=== PATIENT | female | born 1945 | race Caucasian/White ===

== ENCOUNTER 2020-12-08 16:12 | Inpatient (IN) ==
[2020-12-08] MEDS: Budesonide/Formoterol 160/4.5 1 PUFF INH IH SCH (22:15)
[2020-12-08] MEDS: Topiramate 25 MG TABLET PO SCH (22:37)
[2020-12-08] MEDS: Apixaban 5 MG TABLET PO SCH (22:37)
[2020-12-08] MEDS: Nystatin POWDER 30 GM BOTTLE TP SCH (22:38)
[2020-12-09 04:44] LABS: Basophils % 0.4 %; Eosinophils # 0.1 K/mcL (0.0-0.6); Eosinophils % 2.3 %; Hematocrit 38.7 % (35.3-44.9); Hemoglobin 10.9 g/dL (11.5-15.4); Immature Granulocytes % 0.5 % (0-4); Lymphocytes # 0.9 K/mcL (0.6-4.6); Lymphocytes % 16.4 %; Mean Corpuscular HGB Conc 28.2 g/dL (31.6-35.5); Mean Corpuscular Hemoglobin 26.1 pg (28.0-33.3); Mean Corpuscular Volume 92.6 fL (83.0-100.0); Mean Platelet Volume 11.5 fL (9.4-12.4); Monocytes # 0.3 K/mcL (0.0-1.3); Neutrophils # 4.2 K/mcL (1.6-8.9); Platelet Count 205 K/mcL (140-400); Red Blood Count 4.18 M/mcL (3.82-4.97); Red Cell Distribution Width 19.5 % (11.5-14.5); Segmented Neutrophils % 74.4 %; White Blood Count 5.6 K/mcL (4.3-11.1)
[2020-12-09] MEDS: Acetaminophen 325 MG TABLET PO PRN ×2 (04:49→17:27)
[2020-12-09 04:58] LABS: BUN/Creatinine Ratio 24 (6-26); Blood Urea Nitrogen 20 mg/dL (8-23); Carbon Dioxide 30 mEq/L (23-29); Chloride 108 mEq/L (98-107); Glucose 168 mg/dL (70-105); Magnesium 1.9 mg/dL (1.6-2.6); Osmolality,Calculated 302 (280-300); Potassium 4.5 mEq/L (3.5-5.1); Sodium 143 mEq/L (136-145); eGFR For African Americans > 60 (> 60); eGFR For Non-African Americans > 60 (> 60)
[2020-12-09] MEDS: Metoprolol XL (24 HR) Succ 50 MG TAB.ER.24H PO SCH (08:17)
[2020-12-09] MEDS: *HR* Amiodarone 200 MG TABLET PO SCH (08:17)
[2020-12-09] MEDS: *HR* Metformin 500 MG TABLET PO SCH (08:17)
[2020-12-09] MEDS: Nystatin POWDER 30 GM BOTTLE TP SCH ×3 (08:20→21:56)
[2020-12-09] MEDS: Tiotropium 10 INH DOSE IH SCH (10:14)
[2020-12-09] MEDS: Budesonide/Formoterol 160/4.5 1 PUFF INH IH SCH ×2 (10:17→19:13)
[2020-12-09] MEDS: Apixaban 5 MG TABLET PO SCH ×2 (10:25→20:51)
[2020-12-09] MEDS ORDERED: *HR* Dextrose 50 % in Water (Vial) 50 ML VIAL IVP PRN (11:40)
[2020-12-09] MEDS ORDERED: Dextrose Gel 15 GM/37.5 ML TUBE PO PRN ×2 (11:40)
[2020-12-09] MEDS ORDERED: D5% in Water 1,000 ML IVC PRN (11:40)
[2020-12-09] MEDS: Insulin LISPRO 300 UNITS/3 ML VIAL SUBQ SCH ×2 (16:05→20:51)
[2020-12-09] MEDS: Topiramate 25 MG TABLET PO SCH (20:51)
[2020-12-09] MEDS ORDERED: QUEtiapine Fumarate 25 MG TABLET PO SCH (21:00)
[2020-12-10 06:15] LABS: Hematocrit 37.1 % (35.3-44.9); Hemoglobin 10.4 g/dL (11.5-15.4); Mean Corpuscular Hemoglobin 26.1 pg (28.0-33.3); Mean Platelet Volume 11.2 fL (9.4-12.4); Platelet Count 178 K/mcL (140-400); Red Blood Count 3.99 M/mcL (3.82-4.97); Red Cell Distribution Width 19.6 % (11.5-14.5); White Blood Count 4.6 K/mcL (4.3-11.1)
[2020-12-10 06:51] LABS: Alanine Aminotransferase 37 Units/L (7-52); Albumin 2.5 g/dL (3.5-5.7); Albumin/Globulin Ratio 0.9 (1.1-2.2); Alkaline Phosphatase 88 Units/L (34-104); Aspartate Amino Transferase 13 Units/L (13-39); BUN/Creatinine Ratio 22 (6-26); Bilirubin,Total 0.3 mg/dL (0.3-1.0); Blood Urea Nitrogen 20 mg/dL (8-23); Calcium 8.8 mg/dL (8.6-10.3); Carbon Dioxide 31 mEq/L (23-29); Chloride 106 mEq/L (98-107); Globulin 2.7 g/dL (2.4-3.5); Glucose 120 mg/dL (70-105); Magnesium 1.8 mg/dL (1.6-2.6); Osmolality,Calculated 298 (280-300); Potassium 3.7 mEq/L (3.5-5.1); Sodium 142 mEq/L (136-145); Total Protein 5.2 g/dL (6.4-8.9); eGFR For African Americans > 60 (> 60); eGFR For Non-African Americans 60 (> 60)
[2020-12-10] MEDS: Insulin LISPRO 300 UNITS/3 ML VIAL SUBQ SCH ×4 (08:32→21:31)
[2020-12-10] MEDS: *HR* Metformin 500 MG TABLET PO SCH (08:32)
[2020-12-10] MEDS: Apixaban 5 MG TABLET PO SCH ×2 (08:32→21:30)
[2020-12-10] MEDS: *HR* Amiodarone 200 MG TABLET PO SCH ×2 (08:32→12:44)
[2020-12-10] MEDS: Metoprolol XL (24 HR) Succ 50 MG TAB.ER.24H PO SCH (08:32)
[2020-12-10] MEDS: Nystatin POWDER 30 GM BOTTLE TP SCH ×3 (08:33→21:31)
[2020-12-10 09:21] LABS: ABG Base Excess 0 mEq/L (-2 to 3); ABG HCO3 28 mEq/L (21-27); ABG Oxygen Saturation 97 % (95-98); ABG PCO2 63 mmHg (35-45); ABG PH 7.26 pH Units (7.32-7.45); ABG PO2 106 mmHg (85-104); ABG TCO2 30 mEq/L (20-26)
[2020-12-10] MEDS: Tiotropium 10 INH DOSE IH SCH (09:22)
[2020-12-10] MEDS: Budesonide/Formoterol 160/4.5 1 PUFF INH IH SCH ×2 (09:23→22:13)
[2020-12-10 10:37] LABS: Estimated Average Glucose 200 mg/dl; Hemoglobin A1C 8.6 %
[2020-12-10] MEDS: Furosemide 20 MG/2 ML VIAL IVP SCH ×2 (12:40→21:31)
[2020-12-10] MEDS: Ipratropium/Albuterol Neb 3 ML IH SCH ×2 (16:18→22:13)
[2020-12-10] MEDS ORDERED: QUEtiapine Fumarate 25 MG TABLET PO SCH (21:00)
[2020-12-10] MEDS: Topiramate 25 MG TABLET PO SCH (21:30)
[2020-12-10] MEDS: Melatonin 3 MG TABLET PO SCH (21:30)
[2020-12-10] MEDS: QUEtiapine Fumarate 25 MG TABLET PO SCH (21:31)
[2020-12-10] MEDS: Acetaminophen 325 MG TABLET PO PRN (22:47)
[2020-12-10] MEDS: *HR* LORazepam 0.5 MG TABLET PO PRN (22:55)
[2020-12-11] MEDS ORDERED: *HR* LORazepam 2 MG/ML VIAL IVP ONE (01:27)
[2020-12-11] MEDS: Ipratropium/Albuterol Neb 3 ML IH SCH ×4 (03:38→22:02)
[2020-12-11] MEDS ORDERED: Nitroglycerin 0.4 MG TAB.SUBL SL PRN (09:36)
[2020-12-11] MEDS ORDERED: Nitroglycerin 0.4 MG TAB.SUBL SL ONE (09:37)
[2020-12-11] MEDS: Insulin LISPRO 300 UNITS/3 ML VIAL SUBQ SCH ×4 (09:48→22:22)
[2020-12-11] MEDS: Furosemide 20 MG/2 ML VIAL IVP SCH ×2 (10:04→22:21)
[2020-12-11] MEDS: Tiotropium 10 INH DOSE IH SCH (10:13)
[2020-12-11] MEDS: Budesonide/Formoterol 160/4.5 1 PUFF INH IH SCH ×2 (10:13→22:02)
[2020-12-11 13:50] LABS: BUN/Creatinine Ratio 20 (6-26); Blood Urea Nitrogen 20 mg/dL (8-23); Calcium 8.9 mg/dL (8.6-10.3); Carbon Dioxide 33 mEq/L (23-29); Chloride 106 mEq/L (98-107); Glucose 123 mg/dL (70-105); Magnesium 1.7 mg/dL (1.6-2.6); Osmolality,Calculated 304 (280-300); Potassium 3.9 mEq/L (3.5-5.1); Sodium 145 mEq/L (136-145); eGFR For African Americans > 60 (> 60); eGFR For Non-African Americans 55 (> 60)
[2020-12-11] MEDS: Apixaban 5 MG TABLET PO SCH ×2 (13:51→22:22)
[2020-12-11] MEDS: *HR* Metformin 500 MG TABLET PO SCH (13:51)
[2020-12-11] MEDS: Metoprolol XL (24 HR) Succ 50 MG TAB.ER.24H PO SCH (13:51)
[2020-12-11] MEDS: *HR* Amiodarone 200 MG TABLET PO SCH (13:52)
[2020-12-11] MEDS: Nystatin POWDER 30 GM BOTTLE TP SCH ×3 (13:53→22:23)
[2020-12-11] MEDS: Topiramate 25 MG TABLET PO SCH (22:21)
[2020-12-11] MEDS: Melatonin 3 MG TABLET PO SCH (22:22)
[2020-12-11] MEDS: Acetaminophen 325 MG TABLET PO PRN (22:22)
[2020-12-11] MEDS: QUEtiapine Fumarate 25 MG TABLET PO SCH (22:22)
[2020-12-12] MEDS: *HR* LORazepam 0.5 MG TABLET PO PRN ×2 (01:33→23:36)
[2020-12-12] MEDS: Ipratropium/Albuterol Neb 3 ML IH SCH ×4 (03:58→22:25)
[2020-12-12] MEDS: *HR* Amiodarone 200 MG TABLET PO SCH (10:05)
[2020-12-12] MEDS: Apixaban 5 MG TABLET PO SCH ×2 (10:05→20:01)
[2020-12-12] MEDS: Insulin LISPRO 300 UNITS/3 ML VIAL SUBQ SCH ×4 (10:05→19:52)
[2020-12-12] MEDS: *HR* Metformin 500 MG TABLET PO SCH (10:05)
[2020-12-12] MEDS: Furosemide 20 MG/2 ML VIAL IVP SCH (10:06)
[2020-12-12] MEDS: Metoprolol XL (24 HR) Succ 50 MG TAB.ER.24H PO SCH (10:06)
[2020-12-12] MEDS: Nystatin POWDER 30 GM BOTTLE TP SCH ×3 (10:06→20:02)
[2020-12-12] MEDS: Budesonide/Formoterol 160/4.5 1 PUFF INH IH SCH ×2 (10:40→22:25)
[2020-12-12] MEDS: Tiotropium 10 INH DOSE IH SCH (10:42)
[2020-12-12 12:18] LABS: BUN/Creatinine Ratio 21 (6-26); Blood Urea Nitrogen 21 mg/dL (8-23); Calcium 8.8 mg/dL (8.6-10.3); Carbon Dioxide 29 mEq/L (23-29); Chloride 104 mEq/L (98-107); Glucose 145 mg/dL (70-105); Magnesium 1.7 mg/dL (1.6-2.6); Osmolality,Calculated 302 (280-300); Potassium 3.8 mEq/L (3.5-5.1); Sodium 143 mEq/L (136-145); eGFR For African Americans > 60 (> 60); eGFR For Non-African Americans 55 (> 60)
[2020-12-12] MEDS: haloperidoL 1 MG TABLET PO SCH ×2 (14:48→20:01)
[2020-12-12] MEDS: Topiramate 25 MG TABLET PO SCH (20:01)
[2020-12-12] MEDS: Melatonin 3 MG TABLET PO SCH (20:01)
[2020-12-12] MEDS: Acetaminophen 325 MG TABLET PO PRN (22:25)
[2020-12-12] MEDS: QUEtiapine Fumarate 25 MG TABLET PO SCH (22:26)
[2020-12-13] MEDS: Ipratropium/Albuterol Neb 3 ML IH SCH ×4 (03:43→20:41)
[2020-12-13] MEDS: Furosemide 20 MG TABLET PO SCH ×2 (05:01→17:20)
[2020-12-13] MEDS: Tiotropium 10 INH DOSE IH SCH (09:14)
[2020-12-13] MEDS: Budesonide/Formoterol 160/4.5 1 PUFF INH IH SCH ×2 (09:16→20:41)
[2020-12-13] MEDS: haloperidoL 1 MG TABLET PO SCH ×3 (09:32→20:28)
[2020-12-13] MEDS: Apixaban 5 MG TABLET PO SCH ×2 (09:32→20:30)
[2020-12-13] MEDS: *HR* Amiodarone 200 MG TABLET PO SCH (09:33)
[2020-12-13] MEDS: Insulin LISPRO 300 UNITS/3 ML VIAL SUBQ SCH ×4 (09:33→20:29)
[2020-12-13] MEDS: Metoprolol XL (24 HR) Succ 50 MG TAB.ER.24H PO SCH (09:33)
[2020-12-13] MEDS: *HR* Metformin 500 MG TABLET PO SCH (09:33)
[2020-12-13] MEDS: Nystatin POWDER 30 GM BOTTLE TP SCH ×3 (12:00→20:30)
[2020-12-13 12:38] LABS: Bilirubin,Urine Negative (Negative); Blood,Urine Large (Negative); Clarity,Urine Clear (Clear); Color,Urine Yellow (Yellow); Glucose,Urine (UA) Normal (Normal); Ketones,Urine Negative (Negative); Leukocyte Esterase,Urine Small (Negative); Nitrite,Urine Negative (Negative); Protein,Urine 30 mg/dL (Neg-Trace); Specific Gravity,Urine 1.025 (1.010-1.025); Urobilinogen,Urine Normal (Normal)
[2020-12-13 12:50] LABS: RBC,Urine TNTC per hpf (0-3)
[2020-12-13 12:51] LABS: Bacteria,Urine Moderate per hpf (None-Few); Squamous Epithelial Cell,Urine Few per hpf (None-Few)
[2020-12-13] MEDS: Melatonin 3 MG TABLET PO SCH (20:27)
[2020-12-13] MEDS: Acetaminophen 325 MG TABLET PO PRN (20:28)
[2020-12-13] MEDS: Topiramate 25 MG TABLET PO SCH (20:28)
[2020-12-13] MEDS: hydrOXYzine pamoate 25 MG CAPSULE PO PRN (20:30)
[2020-12-14] MEDS: Ipratropium/Albuterol Neb 3 ML IH SCH ×4 (05:20→22:08)
[2020-12-14] MEDS: Furosemide 20 MG TABLET PO SCH ×2 (06:28→16:53)
[2020-12-14] MEDS: Insulin LISPRO 300 UNITS/3 ML VIAL SUBQ SCH ×4 (08:57→21:39)
[2020-12-14] MEDS: Apixaban 5 MG TABLET PO SCH ×2 (08:57→20:09)
[2020-12-14] MEDS: Metoprolol XL (24 HR) Succ 50 MG TAB.ER.24H PO SCH (08:58)
[2020-12-14] MEDS: haloperidoL 1 MG TABLET PO SCH ×3 (08:58→20:09)
[2020-12-14] MEDS: *HR* Amiodarone 200 MG TABLET PO SCH (08:58)
[2020-12-14] MEDS: Nystatin POWDER 30 GM BOTTLE TP SCH ×3 (08:58→20:10)
[2020-12-14] MEDS: *HR* Metformin 500 MG TABLET PO SCH (08:58)
[2020-12-14] MEDS ORDERED: cefTRIAXone 1,000 MG in Water for inj. (sterile) 10 ML IVP SCH (11:00)
[2020-12-14] MEDS: *HR* LORazepam 0.5 MG TABLET PO PRN (11:26)
[2020-12-14] MEDS: Acetaminophen 325 MG TABLET PO PRN (11:26)
[2020-12-14] MEDS: Budesonide/Formoterol 160/4.5 1 PUFF INH IH SCH ×2 (11:35→22:08)
[2020-12-14] MEDS: Tiotropium 10 INH DOSE IH SCH (12:26)
[2020-12-14] MEDS: Cefdinir 300 MG CAPSULE PO SCH ×2 (15:37→20:09)
[2020-12-14] MEDS: Topiramate 25 MG TABLET PO SCH (20:09)
[2020-12-14] MEDS: Melatonin 3 MG TABLET PO SCH (20:09)
[2020-12-14] MEDS: hydrOXYzine pamoate 25 MG CAPSULE PO PRN (20:10)
[2020-12-15] MEDS: *HR* LORazepam 0.5 MG TABLET PO PRN (03:48)
[2020-12-15] MEDS: Ipratropium/Albuterol Neb 3 ML IH SCH ×2 (04:10→08:07)
[2020-12-15] MEDS: Furosemide 20 MG TABLET PO SCH ×2 (04:42→17:25)
[2020-12-15] MEDS: Tiotropium 10 INH DOSE IH SCH (08:07)
[2020-12-15] MEDS: Budesonide/Formoterol 160/4.5 1 PUFF INH IH SCH ×2 (08:07→22:16)
[2020-12-15] MEDS: *HR* Amiodarone 200 MG TABLET PO SCH (09:33)
[2020-12-15] MEDS: Cefdinir 300 MG CAPSULE PO SCH ×2 (09:33→21:50)
[2020-12-15] MEDS: *HR* Metformin 500 MG TABLET PO SCH (09:33)
[2020-12-15] MEDS: Metoprolol XL (24 HR) Succ 50 MG TAB.ER.24H PO SCH (09:33)
[2020-12-15] MEDS: haloperidoL 1 MG TABLET PO SCH ×3 (09:33→21:50)
[2020-12-15] MEDS: Insulin LISPRO 300 UNITS/3 ML VIAL SUBQ SCH ×4 (09:33→20:55)
[2020-12-15] MEDS: Apixaban 5 MG TABLET PO SCH ×2 (09:33→21:50)
[2020-12-15] MEDS: Nystatin POWDER 30 GM BOTTLE TP SCH ×3 (09:39→21:50)
[2020-12-15 11:10] LABS: Basophils % 0.6 %; Eosinophils # 0.1 K/mcL (0.0-0.6); Hematocrit 37.6 % (35.3-44.9); Hemoglobin 10.5 g/dL (11.5-15.4); Immature Granulocytes % 1.2 % (0-4); Lymphocytes # 0.7 K/mcL (0.6-4.6); Lymphocytes % 19.6 %; Mean Corpuscular HGB Conc 27.9 g/dL (31.6-35.5); Mean Corpuscular Hemoglobin 26.3 pg (28.0-33.3); Mean Corpuscular Volume 94.2 fL (83.0-100.0); Mean Platelet Volume 11.2 fL (9.4-12.4); Monocytes # 0.2 K/mcL (0.0-1.3); Monocytes % 6.5 %; Platelet Count 191 K/mcL (140-400); Red Blood Count 3.99 M/mcL (3.82-4.97); Red Cell Distribution Width 21.7 % (11.5-14.5); Segmented Neutrophils % 69.1 %; White Blood Count 3.4 K/mcL (4.3-11.1)
[2020-12-15 11:11] LABS: Neutrophils # 2.4 K/mcL (1.6-8.9)
[2020-12-15 11:25] LABS: BUN/Creatinine Ratio 26 (6-26); Blood Urea Nitrogen 21 mg/dL (8-23); Calcium 8.4 mg/dL (8.6-10.3); Carbon Dioxide 36 mEq/L (23-29); Chloride 103 mEq/L (98-107); Glucose 137 mg/dL (70-105); Osmolality,Calculated 307 (280-300); Potassium 3.1 mEq/L (3.5-5.1); Sodium 146 mEq/L (136-145); eGFR For African Americans > 60 (> 60); eGFR For Non-African Americans > 60 (> 60)
[2020-12-15] MEDS: Potassium Chloride Elixir 20 MEQ/15 ML UDC PO SCH (15:24)
[2020-12-15] MEDS: Melatonin 3 MG TABLET PO SCH (21:50)
[2020-12-15] MEDS: Topiramate 25 MG TABLET PO SCH (21:50)
[2020-12-16] MEDS: Furosemide 20 MG TABLET PO SCH (04:33)
[2020-12-16 05:04] LABS: Eosinophils # 0.1 K/mcL (0.0-0.6); Eosinophils % 3.2 %; Hematocrit 38.5 % (35.3-44.9); Hemoglobin 10.9 g/dL (11.5-15.4); Immature Granulocytes % 1.2 % (0-4); Lymphocytes # 1.1 K/mcL (0.6-4.6); Lymphocytes % 26.7 %; Mean Corpuscular HGB Conc 28.3 g/dL (31.6-35.5); Mean Corpuscular Hemoglobin 26.7 pg (28.0-33.3); Mean Corpuscular Volume 94.4 fL (83.0-100.0); Mean Platelet Volume 11.3 fL (9.4-12.4); Monocytes # 0.4 K/mcL (0.0-1.3); Monocytes % 8.6 %; Neutrophils # 2.4 K/mcL (1.6-8.9); Platelet Count 196 K/mcL (140-400); Red Blood Count 4.08 M/mcL (3.82-4.97); Segmented Neutrophils % 59.3 %; White Blood Count 4.1 K/mcL (4.3-11.1)
[2020-12-16 05:21] LABS: BUN/Creatinine Ratio 28 (6-26); Blood Urea Nitrogen 22 mg/dL (8-23); Calcium 8.5 mg/dL (8.6-10.3); Carbon Dioxide 37 mEq/L (23-29); Chloride 103 mEq/L (98-107); Glucose 174 mg/dL (70-105); Magnesium 1.5 mg/dL (1.6-2.6); Osmolality,Calculated 310 (280-300); Potassium 3.7 mEq/L (3.5-5.1); Sodium 146 mEq/L (136-145); eGFR For African Americans > 60 (> 60); eGFR For Non-African Americans > 60 (> 60)
[2020-12-16 07:09] VITALS: BP 117/78
[2020-12-16] MEDS: Budesonide/Formoterol 160/4.5 1 PUFF INH IH SCH (08:54)
[2020-12-16] MEDS: Tiotropium 10 INH DOSE IH SCH (08:56)
[2020-12-16] MEDS: Apixaban 5 MG TABLET PO SCH (10:01)
[2020-12-16] MEDS: haloperidoL 1 MG TABLET PO SCH (10:01)
[2020-12-16] MEDS: *HR* Metformin 500 MG TABLET PO SCH (10:02)
[2020-12-16] MEDS: *HR* Amiodarone 200 MG TABLET PO SCH (10:02)
[2020-12-16] MEDS: Cefdinir 300 MG CAPSULE PO SCH (10:02)
[2020-12-16] MEDS: Insulin LISPRO 300 UNITS/3 ML VIAL SUBQ SCH ×2 (10:02→12:44)
[2020-12-16] MEDS: Metoprolol XL (24 HR) Succ 50 MG TAB.ER.24H PO SCH (10:02)
[2020-12-16] MEDS: Potassium Chloride Elixir 20 MEQ/15 ML UDC PO SCH (10:02)
[2020-12-16] MEDS: Nystatin POWDER 30 GM BOTTLE TP SCH (10:03)
[2020-12-16] MEDS ORDERED: haloperidoL 1 MG TABLET PO PRN (10:28)
== END 2020-12-16 14:35 | DRG 70 ==
LOC: INPGRE 19:41
PROVIDERS: ADMIT Family Medicine; ATTEND Family Medicine